=== PATIENT | male | born 1950 | race Caucasian/White ===

== ENCOUNTER 2016-04-21 13:20 | Emergency (ER) | payer MEDICARE, BC ==
[~2016-04-21] VITALS: Ht 185.4 cm; Wt 91.0 kg
[~2016-04-21 13:20] MED LIST: ALLO300T2 PO; CENTTAB PO; GLUC500C5 PO; NAPR220T95 PO; VITA100T5 PO; VITA400C28; VITATAB11
[2016-04-21 13:21] VITALS: BP 132/75; PULSE 75; RESP 14; TEMP 98.1; O2SAT 98
[2016-04-21] MEDS ORDERED: CEPH-460 PO (13:50)
[2016-04-21] MEDS ORDERED: BACT800T5 PO (13:50)
--- NOTE | 2016-04-21 13:51 | PD ---
HPI Chief Complaint: Skin Problem Time Seen by Provider: 13:49 Travel History International Travel<30 days: No Contact w/Intl Traveler<30days: No Traveled to known affect area: No History of Present Illness HPI 66-year-old male presents to the emergency Department with complaint of a possible bug bite that occurred to his left elbow/forearm area on night with worsening of the redness today. Denies paresthesias, loss of sensation, decreased range of motion, decreased strength to affected extremity. Denies fever, chills, nausea, vomiting. Is up-to-date on his tetanus vaccination. No known allergies. No known aggravating or relieving factors. No other modifying factors or associated signs and symptoms. PFSH Past Medical History Autoimmune Disease: No Blood Disorders: No Cancer: No Cardiovascular Problems: No Diabetes: No Endocrine: No Genitourinary: No Hepatitis: No Hiatal Hernia: No Immune Disorder: No Musculoskeletal: Yes (ARTHRITIS) Neurologic: Yes (PINCHED NERVE C3-4. PAIN RT ARM) Psychiatric: No Reproductive: No Respiratory: No Thyroid Disease: No Past Surgical History Abdominal Surgery: No AICD: No Body Medical Devices: CERVICAL PLATE, PIN IN TOE Cardiac Surgery: No Ear Surgery: No Endocrine Surgery: No Eye Surgery: Yes (REINA LASIK) Genitourinary Surgery: No Joint Replacement: No Oral Surgery: No Pacemaker: No Thoracic Surgery: No Social History Tobacco Use: No Substance Use: No Allergies-Medications (Allergen,Severity, Reaction): Coded Allergies: No Known Allergies (Verified , 04/21/16) Reported Meds & Prescriptions Reported Meds & Active Scripts Active Bactrim DS (Sulfamethoxazole-Trimethoprim) 800-160 Mg Tab 1 Tab PO BID 10 Days Keflex (Cephalexin) 500 Mg Cap 500 Mg PO Q6H 10 Days Reported Glucosamine (Glucosamine Sulfate) 500 Mg Cap 500 Mg PO DAILY Vitamin D (Cholecalciferol) 400 Unit Cap Vitamin B Complex (B-Complex Vitamins) 1 Tab Vitamin C (Ascorbic Acid) 100 Mg Tab 100 Mg PO Centrum Silver (Multiple Vitamins W/ Minerals) 1 Tab 1 Tab PO DAILY Aleve (Naproxen Sodium) 220 Mg Tab 220 Mg PO BID PRN Allopurinol 300 Mg Tab 300 Mg PO DAILY Review of Systems Except as stated in HPI: all other systems reviewed are Neg Physical Exam Narrative GENERAL: Well-nourished, well-developed male patient, in no acute distress SKIN: Warm and dry. Left forearm, elbow area, and upper inner biceps area with erythema consistent with cellulitis. Left upper approximately supple and non- tense with 2+ radial pulse and sensory intact without edema. HEAD: Atraumatic. Normocephalic. EYES: Pupils equal and round. No scleral icterus. No injection or drainage. ENT: Mucosa pink and moist. Airway patent. NECK: Trachea midline. CARDIOVASCULAR: Regular rate. RESPIRATORY: No accessory muscle use. GASTROINTESTINAL: Flat. MUSCULOSKELETAL: No obvious deformities. No clubbing. No cyanosis. No edema. NEUROLOGICAL: Awake and alert. Oriented 3. No obvious cranial nerve deficits. Motor grossly within normal limits. Normal speech. PSYCHIATRIC: Appropriate mood and affect; insight and judgment normal. Data Data Last Documented VS Vital Signs Date Time Temp Pulse Resp B/P Pulse Ox O2 Delivery O2 Flow Rate FiO2 04/21/16 13:21 98.1 75 14 132/75 98 MDM Medical Decision Making Medical Screen Exam Complete: Yes Emergency Medical Condition: Yes Medical Record Reviewed: Yes Differential Diagnosis Cellulitis, bug bite, medical clearance Narrative Course 66-year-old male physical exam consistent with cellulitis of the left arm possibly related to above bite. He is up-to-date on his tetanus vaccination. He is afebrile and nontoxic-appearing. The left approximately supplemented with 2+ radial pulses and sensory intact and without edema. Area of cellulitis marked with a surgical marker. Keflex and Bactrim prescribed for home. Patient verbalizes understanding and agreement with treatment plan. Patient is medically cleared and stable for discharge. Discussed reasons to return to the emergency department. Instructed patient to follow up with primary care provider. Patient agrees with treatment plan. The patients vital signs are stable and the patient is stable for outpatient follow-up and treatment. Patient discharged home, stable and in no acute distress. Diagnosis Primary Impression: Cellulitis of left arm Referrals: Primary Care Physician Patient Instructions: Cellulitis (ED), General Instructions, Insect Bite or Sting (ED) Additional Instructions: Complete full course of antibiotics Warm compresses to the affected area Keep area clean and dry Ibuprofen or Tylenol as directed and as needed for pain and inflammation Follow-up with primary care provider Return to emergency department immediately with worsening of symptoms Med/Other Pt SpecificInfo: Prescription(s) given Scripts Sulfamethoxazole-Trimethoprim (Bactrim DS)800-160 Mg Tab1 Tab PO BID 10 Days Ref 0 Prov:Milana Martinez 04/21/16 Cephalexin (Keflex)500 Mg Nes516 Mg PO Q6H 10 Days Ref 0 Prov:Milana Martinez 04/21/16 Disposition: 01 DISCHARGE HOME Condition: Stable Milana Martinez Apr 21, 2016 13:51
== END 2016-04-21 14:15 | disposition home or self-care (01) ==
LOC: NETRI 13:20
DX: L03.114 Cellulitis of left upper limb (principal)
CPT/HCPCS: 99283